=== PATIENT | female | born 1975 | race Caucasian/White ===

== ENCOUNTER 2017-08-31 18:17 | Emergency (ER) | payer BC, OTHER ==
[~2017-08-31] VITALS: Ht 157.5 cm; Wt 72.6 kg
[~2017-08-31 18:17] MED LIST: BOOSTRIX VACCINE SYRINGE IM ONE
[2017-08-31 18:33] VITALS: BP 152/86
[2017-08-31] MEDS ORDERED: CIPRO PO STA (18:36)
[2017-08-31] MEDS ORDERED: CIPRO ONE (18:40)
[2017-08-31] MEDS ORDERED: BOOSTRIX VACCINE SYRINGE IM ONE (19:00)
--- NOTE | 2017-08-31 19:02 | ER.PDOC ---
General Chief Complaint: Extremities Stated Complaint: L FOOT WOUND Time seen by MD: 18:54 Source: patient Exam Limitations: no limitations History of Present Illness Initial Comments 42 yo F PMH of diabetes presents to the ER s/p stepping on a nail that went through her sneaker and injured the plantar aspect of the foot. Denies any other injury and is otherwise in her usual state of health. Onset: just prior to arrival Where: home Severity: mild Context: wearing shoes Modifying Factors: pain on movement Allergies: Coded Allergies: No Known Allergies (Unverified , 08/31/17) Past Medical History Medical History: diabetes Surgical History: , other LMP (females 10-50): 3 weeks Social History Smoking: non-smoker Alcohol Use: none Drug Use: none Reviewed Nursing Reviewed: Vital Signs, Abn. Noted, Nursing Assessment Review of Systems Constitutional: no symptoms reported EENTM: no symptoms reported Respiratory: no symptoms reported Cardiovascular: no symptoms reported Gastrointestinal: no symptoms reported Genitourinary: no symptoms reported Musculoskeletal: see HPI Skin: no symptoms reported Psychiatric/Neurological: no symptoms reported Physical Exam General Appearance: Alert, No Apparent Distress Foot: nml inspection, tenderness Ankle: nml inspection Gait: normal Neuro: sensation nml Vascular: no vascular compromise Tendons: tendon function nml Leg/Knee/Thigh: uninjured above ankle Skin: warm/dry Head/ENT: nml inspection Neck/Back: nml inspection Resp/CVS: no resp distress Abdomen: non-tender Comments shallow puncture wound to plantar surface of L midfoot underlying 2nd metatarsal Results/Orders Results/Orders Administered Medications Medications (Trade) Dose Ordered Sig/Chepe Route PRN Reason Start Time Stop Time Status Last Admin Dose Admin Ciprofloxacin (Cipro) 500 mg STAT STAT PO 08/31/17 18:36 08/31/17 18:38 DC 08/31/17 18:46 Progress Progress well appearing 42 yo F presents s/p puncture wound to L foot, tetanus updated, cipro given in the ED to cover for pseudomonas gien the fact that nail penetrated sneaker, d/c home with analgesia PRN, cipro and keflex for 1 week. Patient advised to return to ED or PMD for 72 hour wound check. Course Sepsis Screening Results: Posi: POSITIVE SEPSIS RISK Vitals & review Data Vital Sign - Last 24 Hours 08/31/17 08/31/17 08/31/17 18:28 18:28 18:33 Temp 97.9 97.9 97.9 Pulse 94 94 94 Resp 18 18 18 B/P (MAP) 152/86 (108) Pulse Ox 97 97 O2 Delivery Room Air Room Air Departure Time of Disposition: 19:00 Disposition: 01 HOME, SELF-CARE Impression: Primary Impression: Puncture wound of foot, left Condition: Stable Patient Instructions: Puncture Wound, [id number] Referrals: MARCO ANTONIO APARICIO NP (PCP) PRIMARY CARE PROVIDER Additional Instructions: Take your antibiotics and pain meds as directed, return in 72 hours (or see your PCP) for a wound check. Return sooner for fevers, redness, swelling or drainage of pus. Duration or Time Spent with Pa: 30 BART TRACEY MD Aug 31, 2017 19:02
[2017-08-31] MEDS ORDERED: TRIPLE ANTIBIOTIC OINTMENT TP ONE (19:20)
[2017-08-31 19:22] VITALS: BP 152/86
[2017-08-31] MEDS ORDERED: TYLENOL PO ONE (19:27)
[2017-08-31] MEDS ORDERED: TYLENOL PO STA (19:28)
== END 2017-08-31 19:32 | disposition home or self-care (01) ==
LOC: ER 18:17
DX: S91.332A Puncture wound without foreign body, left foot, initial encounter (principal); E11.9 Type 2 diabetes mellitus without complications; W22.09XA Striking against other stationary object, initial encounter; Y93.89 Activity, other specified; Y92.098 Other place in other non-institutional residence as the place of occurrence of the external cause; Y99.8 Other external cause status
CPT/HCPCS: 90471; 90715 ×2; 99283; A9150

== ENCOUNTER → 2018-05-27 | Outpatient (CLI) | payer OTHER ==
--- NOTE | 2018-05-27 13:39 | DIREP ---
PROCEDURE:US PELVIS COMPLETE COMPARISON:None. INDICATIONS:PELVIC pain, hx ovarian cyst TECHNIQUE:Pelvic ultrasound using transabdominal technique. Endovaginal images were also obtained for better assessment of the uterus and adnexa. FINDINGS: UTERUS:Size is 10.9 x 6.1 x 6.1 cm. The myometrium is homogeneous. Nabothian cysts are noted in the lower uterine segment. ENDOMETRIUM:Thickness is 1.3 cm. RIGHT OVARY:Normal appearance. Size is 3.6 x 3.2 x 2.1 cm. LEFT OVARY:Normal appearance. Size is 4.0 x 3.3 x 2.5 cm. CUL-DE-SAC:Small amount of free fluid. OTHER:Negative. CONCLUSION:A small amount of free fluid is seen in the pelvis. The study is otherwise normal. No pelvic and or ovarian mass is seen. Dictated by: WINSOME Physician on 05/27/2018 at 12:56 PM [email or web address]
== END | disposition home or self-care (01) ==
LOC: RAD 10:25
PROVIDERS: ATTEND Nurse Practitioner Family
DX: N94.10 Unspecified dyspareunia (principal); N88.8 Other specified noninflammatory disorders of cervix uteri; Z87.42 Personal history of other diseases of the female genital tract
CPT/HCPCS: 76830; 76856

== ENCOUNTER 2020-05-23 21:50 | Emergency (ER) | payer BC, OTHER ==
[~2020-05-23] VITALS: Ht 154.9 cm; Wt 68.9 kg
[2020-05-23 22:05] VITALS: BP 146/84
--- NOTE | 2020-05-23 22:35 | NUR ---
RT FATOU, RT IN PT ROOM FOR EKG AT THIS TIME.
[2020-05-23 22:38] LABS: BASOPHIL % 0.4 % (0.0-0.2); EOSINOPHIL # 0.1 10^3/uL (0.0-0.2); EOSINOPHIL % 1.5 % (0.0-5.0); LYMPHOCYTES # 1.31 10^3/uL1 (1.0-4.8); LYMPHOCYTES % 27.9 % (24.0-44.0); MONOCYTES # 0.4 10^3/uL (0.3-0.8); MONOCYTES % 8.7 % (5.0-12.0); NEUTROPHIL # 2.9 10^3/uL (1.8-7.7); NEUTROPHILS % 61.1 % (41.0-85.0); PLATELET COUNT 410 10^3/uL (150-400); RED CELL DISTRIBUTION WIDTH 16.5 % (11.5-14.5)
--- NOTE | 2020-05-23 22:40 | PCM.EKG ---
[facility] Test Date: 2020-05-23 Test Time: 22:37:46 Pat Name: MEJIA EVERETT Department: Room: Gender: F Em Physician: SABI : [id number] Requested By: SEFERINO CASTRO Order Number: [id number] Reading MD: Seferino CASTRO Measurements Intervals [place] Rate: 80 P: -4 WA: 135 QRS: -41 QRSD: 90 T: 11 QT: 383 QTc: 442 Interpretive Statements Sinus rhythm Left axis deviation Low voltage, precordial leads Consider anterior infarct No previous ECG available for comparison Electronically Signed On 05-24-2020 0:13:00 CDT by Seferino CASTRO Please click the below link to view image of tracing.
[2020-05-23 22:53] LABS: CALCIUM 7.8 mg/dL (8.4-10.5); CARBON DIOXIDE 22.9 mmol/L (20.0-32)
[2020-05-23 22:58] VITALS: BP 128/80
[2020-05-23 23:02] LABS: BILIRUBIN,URINE NEGATIVE (NEGATIVE); UA COLOR YELLOW (YELLOW); UROBILINOGEN,URINE NEGATIVE (NEGATIVE)
--- NOTE | 2020-05-23 23:02 | NUR ---
CT PT AMBULATING TO CT WITH LIN MUÑOZ AT THIS TIME.
--- NOTE | 2020-05-24 00:10 | NUR ---
BLANKET PT PROVIDED WARM BLANKET AT THIS TIME. NO OTHER NEEDS STATED AT THIS TIME.
--- NOTE | 2020-05-24 00:52 | DIREP ---
PROCEDURE:CT ABDOMEN/PELVIS W/ CONTRAST COMPARISON:None. INDICATIONS:Epigastric pain TECHNIQUE:Axial images were created through the abdomen and pelvis with non-ionic intravenous contrast material. No oral contrast was administered. Sagittal and coronal reconstructions were performed from source images. FINDINGS: LUNG BASES:No abnormality LIVER:No hepatic lesion. Portal and hepatic veins are patent. BILIARY:Gallbladder is unremarkable, no intra or extrahepatic biliary dilation. PANCREAS:Unremarkable. SPLEEN:Normal, nonenlarged. KIDNEYS:No renal mass. No hydronephrosis or collecting system stone identified. ADRENALS:Normal. AORTA/VASCULAR:Normal. No aneurysm or dissection. RETROPERITONEUM:No adenopathy or mass. BOWEL/MESENTERY:No evidence of obstruction. Appendix normal. Colonic diverticulosis, predominantly involving the sigmoid colon. No imaging evidence of diverticulitis. ABDOMINAL WALL:Umbilical hernia containing fat URINARY BLADDER: Inherently limited evaluation of the wall; unremarkable for level of distension. PELVIS:Uterus present, no adnexal mass. No adenopathy. BONES:No bony lesion or fracture. OTHER:No free air or fluid. CONCLUSION: 1. Colonic diverticulosis without CT findings of diverticulitis. Dictated by: Inna Cohen MD on 05/24/2020 at 00:48 AM
--- NOTE | 2020-05-24 01:30 | ER.PDOC ---
General Chief Complaint: Abdomen Pain Stated Complaint: ABD PAIN Time seen by MD: 22:45 Source: patient Exam Limitations: no limitations History of Present Illness Initial Comments Epigastric pain for 2 days. No fever or chills. She is nauseated but no vomiting. Severity/Quality: mild, burning Radiation: no radiation Associated Symptoms: nausea/vomiting Exacerbated by: nothing Relieved By: nothing Allergies: Coded Allergies: No Known Allergies (Unverified , 08/31/17) Vital Signs First Vital Signs Date Time Temp Pulse Resp B/P (MAP) Pulse Ox O2 Delivery O2 Flow Rate FiO2 05/23/20 22:05 97.9 87 18 146/84 (104) 98 Room Air Last Vital Signs Date Time Temp Pulse Resp B/P (MAP) Pulse Ox O2 Delivery O2 Flow Rate FiO2 05/23/20 22:58 97.9 85 18 128/80 (96) 97 Room Air Past Medical History Medical History: diabetes, high cholesterol, hypertension Surgical History: other Family History Significant Family History: no pertinent family hx Social History Smoking: non-smoker Alcohol Use: none Drug Use: none Constitutional: no symptoms reported EENTM: no symptoms reported Respiratory: no symptoms reported Cardiovascular: no symptoms reported Gastrointestinal: see HPI Genitourinary: no symptoms reported All Other Systems: Reviewed and Negative Physical Exam General Appearance: No Apparent Distress, WD/WN HEENT: PERRL/EOMI, Normal ENT Inspection, TMs Normal, Pharynx Normal Neck: Non-Tender, Full Range of Motion, Supple, Normal Inspection Respiratory: chest non-tender, lungs clear, normal breath sounds, no respiratory distress, no accessory muscle use Cardiovascular: Normal Peripheral Pulses, Regular Rate, Rhythm, No Edema, No Gallop, No JVD, No Murmur Gastrointestinal: Normal Bowel Sounds, No Organomegaly, No Pulsatile Mass, Tenderness (epigastric area) Back: Normal Inspection, No CVA Tenderness, No Vertebral Tenderness Extremities: Normal Range of Motion, Non-Tender, Normal Inspection, No Pedal Edema, No Calf Tenderness, Normal Capillary Refill, Pelvis Stable Neurologic/Psychiatric: production assistant II-XII NML as Tested, No Motor/Sensory Deficits, Alert, Normal Mood/Affect, Oriented x 3 Skin: Normal Color, Warm/Dry Lymphatic: No Adenopathy Results/Orders Results/Orders Orders - SEFERINO CASTRO MD Cbc With Auto Diff (05/23/20 22:26) Comprehensive Metabolic Panel (05/23/20 22:) Lipase (05/23/20 22:) Helicobacter Pylori (05/23/20:) PT (05/23/20:) Ct Abd/Pel With Iv Contrast (05/23/20:) Partial Thromboplastin Time. (05/23/20 22:26) Urinalysis (05/23/20:) Hcg Urine (05/23/20:) Ekg-Routine (05/23/20:) Vital Signs Date Time Temp Pulse Resp B/P (MAP) Pulse Ox O2 Delivery O2 Flow Rate FiO2 05/23/20:58 97.9 85 18 128/80 (96) 97 Room Air 05/23/20 22: 97.9 87 18 05/23/20 22:05 97.9 87 18 98 05/23/20 22:05 97.9 87 18 146/84 (104) 98 Room Air Laboratory Tests Test 05/23/20 21:58 05/23/20 22:32 Urine Collection Type CCMS Urine Color YELLOW (YELLOW) Urine Appearance SLIGHTLY HAZY (CLEAR) H Urine Bilirubin NEGATIVE MG/DL (NEGATIVE) Urine Ketones NEGATIVE (NEGATIVE) Urine Specific [place] 1.020 (1.005-1.035) Urine pH 5.5 (5.0-6.0) Urine Protein NEGATIVE (NEGATIVE) Urine Urobilinogen NEGATIVE (NEGATIVE) Urine Nitrate NEGATIVE (NEGATIVE) Urine Leukocyte Esterase NEGATIVE (NEGATIVE) Urine Clinitest NEGATIVE (NEG) Urine Blood TRACE (NEGATIVE) Urine RBC 0-2 RBC/HPF (NONE SEEN) Urine WBC 0-2 WBC/HPF (0-2) Urine Squamous Epithelial Cells RARE #/HPF (FEW) Urine Bacteria NONE SEEN (NONE SEEN) Urine Glucose >=1000 (NEGATIVE) Urine HCG, Qualitative NEGATIVE (NEGATIVE) White Blood Count 4.7 10^3/uL (4.5-11.0) Red Blood Count 5.15 10^6/uL (4.00-5.20) Hemoglobin 10.8 g/dL (12.0-15.0) L Hematocrit 35.6 % (36.0-46.0) L Mean Corpuscular Volume 69.1 fL (78-100) L Mean Corpuscular Hemoglobin 21.0 pg (26-34) L Mean Corpuscular Hemoglobin Concent 30.3 g/dL (33-36.5) L Red Cell Distribution Width 16.5 % (11.5-14.5) H Platelet Count 410 10^3/uL (150-400) H Mean Platelet Volume 8.0 fL (7.8-11.0) Neutrophils (%) (Auto) 61.1 % (41.0-85.0) Lymphocytes (%) (Auto) 27.9 % (24.0-44.0) Monocytes (%) (Auto) 8.7 % (5.0-12.0) Neutrophils # (Auto) 2.9 10^3/uL (1.8-7.7) Lymphocytes # (Auto) 1.31 10^3/uL1 (1.0-4.8) Monocytes # (Auto) 0.4 10^3/uL (0.3-0.8) Absolute Immature Granulocyte (auto 0.02 10^3 u/L (0-2) Absolute Eosinophils (auto) 0.1 10^3/uL (0.0-0.2) Immature Granulocytes % 0.40 % (0.00-0.50) Eosinophils % 1.5 % (0.0-5.0) Basophils % 0.4 % (0.0-0.2) H Basophils # 0.0 10^3/uL (0.0-0.1) Prothrombin Time 10.1 SEC (9.3-11.3) Prothrombin Time INR (Non-Therap) 1.0 Activated Partial Thromboplast Time 24.3 SEC (24.67-30.72) Sodium Level 139 mmol/L (132-145) Potassium Level 3.6 mmol/L (3.6-5.2) Chloride Level 106.0 mmol/L (96-109) Carbon Dioxide Level 22.9 mmol/L (20.0-32) Anion Gap 13.7 Blood Urea Nitrogen 10 mg/dL (7-18) Creatinine 0.60 mg/dL (0.59-1.40) Estimated GFR () 130.8 (>/=60) Est GFR (CKD-EPI)(Non-Afr [place]) 108.1 (>/=60) BUN/Creatinine Ratio 16.0 Glucose Level 165 mg/dL (70-110) H Calcium Level 7.8 mg/dL (8.4-10.5) L Total Bilirubin 0.4 mg/dL (0.2-1.0) Aspartate Amino Transferase (AST) 12 U/L (0-35) Alanine Aminotransferase (ALT) 25 U/L (12-78) Alkaline Phosphatase 64 U/L (50-136) Total Protein 7.3 g/dL (6.4-8.2) Albumin 3.5 g/dL (3.4-5.0) Globulin 3.8 Albumin/Globulin Ratio 0.921 Lipase 87 U/L (114-286) L Helicobacter pylori Screen NEGATIVE (NEGATIVE) Progress Progress CT abdomen/pelvis: Colonic diverticulosis without CT findings of diverticulitis. Labs are unremarkable. Lipase is normal. Reviewed labs and CT results with patient. EKG/XRAY/CT/US EKG: NSR EKG Comments: HR 80, left axis deviation ER DEPART Departure Time of Disposition: 01:28 Disposition: 01 HOME, SELF-CARE Impression: Primary Impression: Gastritis and duodenitis Additional Impression: Abdominal pain Condition: Stable Referrals: MARCO ANTONIO APARICIO NP (PCP) PRIMARY CARE PROVIDER Additional Instructions: Nexium F/U with your PCP in 1-2 days Return to ED if worsening pain or concerns Duration or Time Spent with Pa: 60 min Problem Qualifiers Additional Impression: Abdominal pain Abdominal location: epigastric Qualified Codes: R10.13 - Epigastric pain SEFERINO CASTRO MD May 24, 2020 01:30
[2020-05-24 01:45] VITALS: BP 120/75
== END 2020-05-24 01:45 | disposition home or self-care (01) ==
LOC: ER 21:50
DX: R10.13 Epigastric pain (principal)
CPT/HCPCS: 36415; 74177; 80053; 81000; 81025; 83690; 85025; 85610; 85730; 86677; 93005; 99285; Q9965

== ENCOUNTER → 2020-08-30 | Outpatient (CLI) | payer BC ==
--- NOTE | 2020-08-30 15:07 | DIREP ---
PROCEDURE:XRAY FOOT MIN 3 VWS-LT COMPARISON:None. INDICATIONS:S90.122A CONTUSION OF LEFT TOE, R22.41 MASS, SWELLING, LUMP LEFT LOWER LIMB FINDINGS: BONES:Normal. JOINTS:Normal. SOFT TISSUES:Normal. OTHER:No additional findings. CONCLUSION:Normal examination. Dictated by: Leo Jimenez MD on 08/30/2020 at 03:05 PM
== END | disposition home or self-care (01) ==
LOC: RAD 14:11
PROVIDERS: ATTEND Nurse Practitioner Family
DX: S90.122A Contusion of left lesser toe(s) without damage to nail, initial encounter (principal); R22.41 Localized swelling, mass and lump, right lower limb; X58.XXXA Exposure to other specified factors, initial encounter; Y93.89 Activity, other specified; Y92.89 Other specified places as the place of occurrence of the external cause; Y99.8 Other external cause status
CPT/HCPCS: 73630-LT